=== PATIENT | male | born 1960 | race Caucasian/White ===

== ENCOUNTER → 2018-10-26 10:27 | Outpatient (CLI) | payer OTHER, MEDICARE ==
--- NOTE | ~2018-10-26 | HEMODYNAMI ---
PATIENT:JOSE CARDOZO MEDICAL RECORD: [id number] : 56 LOCATION:D.CAT ADMISSION DATE: 10/26/18 Generatedon:10/26/201814:09 Patient name: JOSE CARDOZO Patient #: [id number] SSN: : 1960 Date of study: 10/26/2018 Page: Of Hemodynamic Procedure Report Patient Data Patient Demographics Procedure consent was obtained First Name: JOSE Gender: Male Last Name: CAS : 1960 Middle Initial: A Age: 57 year(s) Patient #: [id number] Race: Unknown Additional ID: [id number] Contact details Address: [address] [place] [address] State: [place] City: [place] Zip code: [address] Past Medical History Allergies Allergen Reaction Date Comments Reported Other allergy 10/26/2018 CARBOCAINE Admission Admission Data Admission Date: 10/26/2018 Admission Time: 10:27 Height (in.): 68 BSA: 1.96 (m2) Height (cm.): 172.72 BMI: 27.42 (kg/m2) Weight (lbs.): 180.36 Weight (kg.): 81.81 Lab Results Lab Result Date: 10/26/2018 Lab Result Time: 0:00 Biochemistry Name Units Result Min Max BUN mg/dl 11 --(-*--)-- 7 18 Creatinine mg/dl 0.9 --(-*--)-- 0.6 1.3 CBC Name Units Result Min Max Hematocrit % 41.9 -*(----)-- 42 54 Hemoglobin g/dl 14.3 --(*---)-- 13.5 17.5 Procedure Procedure Types Cath Procedure Diagnostic Procedure [facility] w/Coronaries Sedation Charges Moderate Sedation up to 15 minutes Procedure Description Procedure Date Procedure Date: 10/26/2018 Procedure Start Time: 13:46 Procedure End Time: 14:06 Procedure Staff Name Function Bety Cornejo RN Nurse Krunal Kaur MD Performing Physician Lakshmi Canales RT Scrub Lizette Ovalle RT Monitor Procedure Data Cath Procedure Fluoroscopy Diagnostic fluoroscopy Total fluoroscopy Time: 2 time: 2 min min Diagnostic fluoroscopy Total fluoroscopy dose: 253 dose: 253 mGy mGy Contrast Material Contrast Material Type Amount (ml) Isovue 300 44 Entry Location Entry Primary Successful Side Size Upsize Upsize Entry Closure [place]den ccessful Closure Location (Fr) 1 (Fr) 2 (Fr) Remarks Device Remarks Radial Right 6 Fr Mechanical TR band artery Short Compression Estimated blood loss: 10 ml Diagnostic catheters Device Type Used For End Catheter Placement DIAGNOSTIC Gaston 110cm Procedure 5Fr catheter ([id number]) Procedure Complications No complications Procedure Medications Medication Administration Route Dosage Oxygen etCO2 Nasal cannula 2 l/min Lidocaine 2% added to field 20 Heparin Flush Bag added to field 2 bags (1000units/500ml NS) 0.9% NaCl I.V. 100 ml/hr Radial Cocktail I.A. 1 syringe (Verapomil 2mg/Nitro 400mcg/Heparin 1500units) Versed I.V. 2 mg Fentanyl I.V. 100 mcg Versed I.V. 2 mg Fentanyl I.V. 50 mcg Versed I.V. 2 mg Hemodynamics Rest BSA: 1.96 (m2) HGB: 14.3 (g/dl) O2 Consumption: Estimated: 232.67 (ml/min) O2 Co nsumption indexed: Estimated:118.71 (ml/min/m) Heart Rate: 73 (bpm) Pressure Samples Time Site Value (mmHg) Purpose Heart Use Rate(bpm) 13:50 LV 82/16,17 Snapshot 63 13:50 LV 123/30,13 Snapshot 123 13:51 AO 108/72(89) Pullback 60 13:51 LV 116/13,11 Pullback 60 Gradients Valve Time Site 1 Site 2 Mean SEP/DFP Peak To Heart Use (mmHg) (sec/min) Peak Rate (mmHg) (bpm) Aortic 13:51 LV AO 4 11 8 60 116/13,11 108/72(89) Calculations Valve P-P Mean Valve Index Valve Source Name Gradient Area Flow (cm2) Aortic 8 4 8 4 Snapshots Pre Cath Intra NCS Post Cath Vital Signs Time Heart Resp SPO2 etCO2 NIBP (mmHg) Rhythm Pain Sedation Rate (ipm) (%) (mmHg) Status Level (bpm) 13:39:29 68 19 98 0 149/103(141) NSR 0 (11) 10(A) , No pain 13:43:51 58 14 98 25.5 127/74(101) NSR 0 (11) 10(A) , No pain 13:48:01 70 13 98 0 126/87(104) NSR 0 (11) 9(A) , No pain 13:52:13 65 14 96 12 110/77(88) NSR 0 (11) 9(A) , No pain 13:56:23 72 14 97 0 112/67(87) NSR 0 (11) 9(A) , No pain 14:00:27 71 13 96 31.5 112/85(103) NSR 0 (11) 10(A) , No pain 14:04:30 73 13 100 40.5 120/85(98) NSR 0 (11) 10(A) , No pain Medications Time Medication Route Dose Verified Delivered Reason Notes Effectiveness by by 13:37:15 Oxygen etCO2 2 l/min Krunal Buffie used for Nasal Vincent Cornejo RN procedure cannula 13:37:21 Lidocaine 2% added 20ml Krunal Krunal for local to vial Vincent Kaur MD anesthetic field 13:37:27 Heparin Flush added 2 bags Krunal Krunal used for Bag to Vincent Kaur MD procedure (1000units/500ml field NS) 13:37:39 0.9% NaCl I.V. 100 Krunal Buffie used for ml/hr Vincent Cornejo RN procedure 13:44:32 Versed I.V. 2 mg Krunal Buffie for sedation Vincent Cornejo RN 13:44:39 Fentanyl I.V. 100 mcg Krunal Buffie for sedation Vincent Cornejo RN 13:49:12 Radial Cocktail I.A. 1 Krunal Krunal for (Verapomil syringe Vincent Kaur MD vasodilation 2mg/Nitro 400mcg/Heparin 1500units) 13:51:25 Versed I.V. 2 mg Krunal Buffie for sedation Vincent Cornejo RN 13:51:31 Fentanyl I.V. 50 mcg Krunal Buffie for sedation Vincent Cornejo RN 14:01:00 Versed I.V. 2 mg Krunal Krunal for sedation Vincent Kaur MD Procedure Log Time Note 12:58:43 Signed procedure consent form obtained from patient. 12:58:44 Diagnostic Cath status Elective 12:58:45 Time tracking: Regular hours (M-F 7:00 - 5:00) 12:58:48 Plan of Care:Hemodynamics will remain stable., Cardiac rhythm will remain stable., Comfort level will be maintained., Respiratory function will remain adequate., Patient/ family verbilizes understanding of procedure., Procedure tolerated without complication., Recovers from procedure without complications.. 12:59:05 Patient allergic to Other allergyCARBOCAINE 12:59:51 Lab Result : Hemoglobin 14.3 g/dl 12:59:51 Lab Result : Hematocrit 41.9 % 12:59:51 Lab Result : BUN 11 mg/dl 12:59:51 Lab Result : Creatinine 0.9 mg/dl 13:00:01 Patient Weight : 180.36 lbs 13:00:14 Patient Height : 68 inches 13:10:19 H&P Date Dictated: 10/19/2018 Within 30 days and on chart., H&P Addendum completed by physician on day of procedure. (MUST COMPLETE FOR ALL OUTPATIENTS). 13:19:16 Beyt Cornejo RN sent for patient. Start room use. 13:37:15 Oxygen 2 l/min etCO2 Nasal cannula was administered by Bety Cornejo RN; used for procedure; 13:37:21 Lidocaine 2% 20ml vial added to field was administered by Krunal Kaur MD; for local anesthetic; 13:37:27 Heparin Flush Bag (1000units/500ml NS) 2 bags added to field was administered by Krunal Kaur MD; used for procedure; 13:37:39 0.9% NaCl 100 ml/hr I.V. was administered by Bety Cornejo RN; used for procedure; 13:38:16 Vital chart was started 13:38:18 ECG and BP/O2 sat monitors applied to patient. 13:38:19 Baseline sample Acquired. 13:38:22 Rhythm: sinus rhythm 13:38:24 Full Disclosure recording started 13:38:28 Family in patients room. 13:38:30 Patient NPO since Midnight. 13:38:38 Is the patient allergic to Iodine/contrast media? No. 13:38:39 Was the patient premedicated? Yes 13:38:42 Is patient on blood thinner?No 13:38:44 Patient diabetic? No. 13:38:55 Snore? No 13:38:56 Sleep apnea? No 13:38:57 Deviated septum? No 13:39:03 Dentures? No ? 13:39:08 Patient pain scale 0/10 ?. 13:39:19 IV patent on arrival in left forearm with 0.9% NaCl at [facility]. 13:39:25 Lab results completed and on chart. 13:39:29 Right Radial & Right Groin area was prepped with chlora-prep and draped in sterile fashion 13:39:30 Alarms reviewed by R. N. 13:39:30 Sharps counted by scrub and verified by R.N. 13:39:32 Physician paged 13:44:01 Physician arrived 13:44:02 --------ALL STOP TIME OUT------ 13:44:02 Final Timeout: patient, procedure, and site verified with staff and physician. All members of the team are in agreement. 13:44:05 Right Radial & Right Groin site verified by team. 13:44:11 Maximum allowable Isovue 300 dose 300ml. Physician notified. (300ml for normal creatinines. For patients with creatinine of 1.7 or higher multiply weight(kg) x 5 divided by creatinine.) 13:44:17 Fire Safety Assessment: A--An alcohol-based skin anteseptic being used preoperatively., C--Open oxygen or nitrous oxide is being used., D--An ESU, laser, or fiber-optic light is being used. 13:44:27 Physical assessment completed. ASA score P 2 - A patient with mild systemic disease as per Krunal Kaur MD. 13:44:32 Versed 2 mg I.V. was administered by Bety Cornejo RN; for sedation; 13:44:33 Sedation plan: IV Moderate Sedation Medication:Versed, Fentanyl 13:44:39 Fentanyl 100 mcg I.V. was administered by Bety Cornejo RN; for sedation; 13:46:26 Use device set Radial Dx or PCI 13:46:28 ACIST Syringe (69628) opened to sterile field. 13:46:28 Medline Cath Pack ([id number]) opened to sterile field. 13:46:29 Bag Decanter (2002) opened to sterile field. 13:46:30 DIAGNOSTIC WIRE .035 260cm J wire (191073) opened to sterile field. 13:46:31 ACIST Hand Control (77070) opened to sterile field. 13:46:31 ACIST Manifold (65456) opened to sterile field. 13:46:31 Tegaderm 4 x 4 (1626W) opened to sterile field. 13:46:32 MBrace Wrist Support ([id number]) opened to sterile field. 13:46:33 NEEDLE Cook 21G 4cm Radial (U08867) opened to sterile field. 13:46:35 SHEATH 6FR Slender (801063) opened to sterile field. 13:46:41 Procedure started. 13:46:52 Local anesthetic to right radial artery with Lidocaine 2% by Bety Cornejo RN.INITIAL ACCESS ONLY 13:47:02 A 6 Fr Short sheath was inserted into the Right Radial artery 13:48:44 A DIAGNOSTIC Gaston 110cm 5Fr catheter (385816) was advanced over the wire and used for Procedure. 13:49:12 Radial Cocktail (Verapomil 2mg/Nitro 400mcg/Heparin 1500units) 1 syringe I.A. was administered by Krunal Kaur MD; for vasodilation; 13:49:12 LV angiography performed. 13:49:20 LV gram done using MATUTE 13:50:50 EF : 60 % 13:51:25 Versed 2 mg I.V. was administered by Bety Cornejo RN; for sedation; 13:51:31 Fentanyl 50 mcg I.V. was administered by Bety Cornejo RN; for sedation; 13:51:36 LCA angiography performed. 13:53:34 RCA angiography performed. 13:56:18 Catheter removed. 14:01:00 Versed 2 mg I.V. was administered by Krunal Kaur MD; for sedation; 14:04:17 Sheath removed intact; hemostasis achieved with Mechanical Compression to the Right Radial artery. 14:04:20 Procedure ended.(Physican Out) 14:04:42 Fluoroscopy time 02.00 minutes. 14:04:49 Fluoroscopy dose: 253 mGy 14:04:49 Flurop Dose total: 253 14:04:54 Contrast amount:Isovue 300 44ml. 14:04:59 Sharps counted by scrub and verified by R.N. 14:05:05 TR band inflated with 12cc of air. 14:05:07 Insertion/operative site no bleeding no hematoma. 14:05:26 Post right radial artery:stable 14:05:30 Post Procedure Pulses reassessed and unchanged 14:05:34 Post-procedure physical assessment completed. ASA score P 2 - A patient with mild systemic disease as per Bety Cornejo RN. 14:05:39 Post procedure rhythm: sinus rhythm 14:05:44 Estimated blood loss: 10 ml 14:05:46 Post procedure instruction explained to patient.Patient verbalizes understanding. 14:06:01 Procedure type changed to Cath procedure, Diagnostic procedure, LHC, LHC w/Coronaries, Sedation Charges, Moderate Sedation up to 15 minutes 14:06:03 Procedure and supply charges have been captured, reviewed, submitted and are correct. 14:06:21 Procedure Complication : No complications 14:06:24 Vital chart was stopped 14:06:25 See physician's report for complete and final results. 14:06:27 Report given to Pre/Post Procedure Room. 14:06:31 Patient transfered to Pre/Post Procedure Room with Stretcher. 14:06:33 Procedure ended. 14:06:33 Full Disclosure recording stopped 14:06:43 End room use (Document Last) Device Usage Item Name Manufacture Quantity Catalog Hospital Part Current Minimal Lot# / Number Charge Number Stock Stock Serial# Code ACIST Acist 1 31003 305267 895423 [id number] 20 Syringe Medical (26741) Systems Inc Medline Medline 1 [id number] 085247 10902 652332 5 Cath Pack ([id number]) Bag Microtek 1 2001S 995524 47336 495175 5 Decanter Medical Inc. () DIAGNOSTIC St Baron 1 704835 548307 121516 366185 30 WIRE .035 260cm J wire (577190) ACIST Hand Acist 1 55961 129230 541690 895858 5 Control Medical (62082) Systems Inc ACIST Acist 1 59555 428305 201386 995942 5 Manifold Medical (16940) Systems Inc Tegaderm 4 3M 1 1626W 774508 881430 425973 5 x 4 (1626W) MBrace Advanced 1 140-0250-00 004167 91232 444426 5 Wrist Vascular Support Dynamics ([id number]) NEEDLE Eleven [employer] Medical 1 U02820 091305 067515 377769 5 21G 4cm Radial (R79173) SHEATH 6FR Terumo 1 [id number] 876347 855220 490569 5 Slender (96-9571) DIAGNOSTIC Terumo 1 57-5752 296442 608092 676406 5 Gaston 110cm 5Fr catheter (223858) Signature Audit [place] Stage Time Signature Unsigned Intra-Procedure 10/26/2018 Lizette Ovalle 2:09:48 PM RT(R) Signatures Monitor : Lizette Ovalle Signature : RT Date : Time : [place] [id number] [facility] [address]
[~2018-10-26 10:27] MED LIST: ASPIRIN81 MG PO; ATIVAN0.5 MG PO; ISOSORBIDE MONO10 MG PO; LOVASTATIN40 MG PO; METOPROLOL TART50 MG PO; NITROSTAT0.4 MG SL
[2018-10-26 11:01] VITALS: BP 156/99; BMI 27.4
[2018-10-26 11:12] LABS: BASOPHILS 0.3 % (0-2); EOSINOPHILS 9.7 % (0-7); HEMATOCRIT 41.9 % (42.0-54.0); HEMOGLOBIN 14.3 g/dL (13.5-17.5); IMMATURE GRANULOCYTES 0.6 % (0-5); LYMPHOCYTES 16.2 % (15-50); MCH 31.8 pg (26.0-34.0); MCHC 34.1 g/dL (31.0-37.0); MCV 93.3 fL (80.0-100.0); MEAN PLATELET VOLUME 11.5 fL (7.4-10.4); MONOCYTES 8.2 % (2-11); PLATELET COUNT 246 10x3/uL (130-400); RBC 4.49 10x6/uL (4.20-6.10); RDW 13.4 % (11.5-14.5); WBC 10.9 10x3/uL (4.8-10.8)
[2018-10-26 11:18] LABS: CALC OSMOLALITY 281 mosm/kg (275-300); CARBON DIOXIDE 27.8 mmol/L (21.0-32.0); CHLORIDE - SERUM 107 mmol/L (98-107); CREATININE - SERUM 0.9 mg/dL (0.6-1.3); GLUCOSE 92 mg/dL (74-106); POTASSIUM - SERUM 4.4 mmol/L (3.5-5.1); SODIUM 142 mmol/L (136-145); UREA NITROGEN 11 mg/dL (7-18); eGFR NON AFRICAN AMERICAN > 90 mL/min (90-120)
== END | disposition home or self-care (01) ==
LOC: D.CATH 10:27
PROVIDERS: Internal Medicine Cardiovascular Disease
DX: I25.119 Atherosclerotic heart disease of native coronary artery with unspecified angina pectoris (principal); Z95.5 Presence of coronary angioplasty implant and graft; Z01.812 Encounter for preprocedural laboratory examination

== ENCOUNTER 2018-10-28 05:07 | Inpatient (IN) | payer OTHER, MEDICARE ==
[2018-10-26 16:16] LABS: APTT 36.1 SECONDS (22.8-39.4); INR 1.1 (0.85-1.17); PROTIME 13.7 SECONDS (11.6-15.0)
[2018-10-26 16:44] LABS: PHOSPHOROUS 3.5 mg/dL (2.5-4.9); T4 THYROXIN - FREE 0.95 ng/dL (0.76-1.46); THYROID STIMULATING HORMONE 2.05 uIU/mL (0.36-3.74); URIC ACID 6.3 mg/dL (2.6-7.2)
[~2018-10-28] VITALS: Ht 172.7 cm; Wt 87.5 kg
[2018-10-28] VITALS (27 sets, daily range): BP systolic 96–171; BP diastolic 52–98; BMI 27.1; BMI 31.8
[2018-10-28 06:30] LABS: APPEARANCE CLEAR (CLEAR); COLOR YELLOW (YELLOW)
[2018-10-28 06:31] LABS: BILIRUBIN NEGATIVE (NEGATIVE); GLUCOSE NEGATIVE (NEGATIVE); KETONE NEGATIVE (NEGATIVE); NITRITE NEGATIVE (NEGATIVE); PROTEIN NEGATIVE (NEGATIVE); UROBILINOGEN NORMAL (NORMAL)
--- NOTE | 2018-10-28 14:39 | TEE ---
PATIENT:JOSE CARDOZO MEDICAL RECORD: [id number] LOCATION:[place] [address] AGE OF PATIENT: 57 ADMISSION DATE: 10/28/18 SEX: M REFERRING PHYSICIAN: INTERPRETING PHYSICIAN: RAMANDEEP GRECO MD TRANSESOPHAGEAL ECHOCARDIOGRAM Date: 10/28/18 LESIA CHARGE Y INDICATIONS: CABG PREMEDICATIONS: PATIENT'S RESPONSE PROCEDURE DOPPLER MEASUREMENTS: LVIT LA PA RA LVOT RVOT Asc. Ao AV Gradient Peak AV Mean AV Area MV Gradient Peak MV Mean MV Area INTERPRETATION: Doppler: 2-D: COLOR FLOW DOPPLER NORMAL SALINE STUDY: MISCELLANOUS: DIAGNOSIS: PLAN: Hand Stoner:2 Dr. Kaur Marine Engine Mechanic: Aquilino GARG COMMENTS: BENITA ORDOÑEZ DATE OF SERVICE: 10/28/2018 DATE OF SERVICE: 10/28/2018 PROCEDURE: Transesophageal echo evaluation of valvular structures during bypass surgery. FINDINGS: 1. Left ventricular chamber size is within normal limits. Left ventricular TRANSESOPHAGEAL ECHOCARDIOGRAM REPORT [id number] JOSE CARDOZO systolic function is normal. Overall ejection fraction estimated at 55%. 2. Left atrium, right atrium, and right ventricle chamber sizes are within normal limits. 3. Valvular structures have normal structure and motion. 4. Doppler interrogation reveals no significant valvular insufficiency or stenosis. 5. No evidence of pericardial effusion or left ventricular thrombus. TRANSINT:[id number] Voice Confirmation ID: [id number] DOCUMENT ID: [id number] at 1439 CC: [id number] DICTATION DATE: 10/28/18 1114 CLINICAL PHYSICIAN ASSISTANT: 10/28/18 1320 ADM IN [place] [id number] [place] [address]
[2018-10-29] VITALS (17 sets, daily range): BP systolic 99–135; BP diastolic 6–98
[2018-10-29 05:14] LABS: HEMATOCRIT 33.6 % (42.0-54.0); HEMOGLOBIN 11.4 g/dL (13.5-17.5); MCH 31.3 pg (26.0-34.0); MCHC 33.9 g/dL (31.0-37.0); MCV 92.3 fL (80.0-100.0); MEAN PLATELET VOLUME 11.2 fL (7.4-10.4); RBC 3.64 10x6/uL (4.20-6.10); RDW 13.7 % (11.5-14.5); WBC 21.7 10x3/uL (4.8-10.8)
[2018-10-29 05:30] LABS: ALBUMIN 2.4 g/dL (3.4-5.0); ANION GAP 11.9 mmol/L (8-16); BILIRUBIN - TOTAL 0.71 mg/dL (0.2-1.3); CALCIUM 7.1 mg/dL (8.5-10.1); CARBON DIOXIDE 25.3 mmol/L (21.0-32.0); CREATININE - SERUM 1.2 mg/dL (0.6-1.3); POTASSIUM - SERUM 4.2 mmol/L (3.5-5.1); PROTEIN - SERUM 5.1 g/dL (6.4-8.2)
--- NOTE | 2018-10-29 14:18 | OP ---
PATIENT NAME: JOSE CARDOZO MEDICAL RECORD: [id number] :56 LOCATION:.[facility] D.CV03 ADMISSION DATE:10/28/18 SURGEON: DEMETRI JOY MD DATE OF OPERATION: 10/28/2018 SURGEON: Demetri Joy MD SLITTER SERVICE AND SETTER: Stanley Coffman. PROCEDURE PERFORMED: Coronary artery bypass graft times 3 (left internal mammary artery to LAD, right internal mammary artery to right coronary artery, reverse saphenous vein graft from aorta to obtuse marginal distal branch). PREOPERATIVE DIAGNOSES: Coronary artery disease with unstable angina. POSTOPERATIVE DIAGNOSES: Coronary artery disease with unstable angina. ANESTHESIA: General endotracheal anesthesia. ESTIMATED BLOOD LOSS: Total cardiopulmonary bypass with Cell Saver retransfusion. COMPLICATIONS: None. SPECIMENS: None. CONDITION: Stable. DISPOSITION: CV ICU. OPERATIVE FINDINGS: 1. Transesophageal echocardiography was normal. 2. Good quality left internal mammary artery taken down as a skeletonized graft and the LAD was a 2.0-mm vessel. 3. Good quality right internal mammary artery, moderate disease in the right coronary artery at the bifurcation, but a 1.5 mm probe passed into the ongoing right as well as the PDA. There was good Doppler signal after anastomosis and after reversal of heparin. 4. Three bridging incisions left lower leg to remove a 3 mm caliber piece of vein, which was a good match for the distal branch of the bifurcating obtuse marginal beyond the stent and there was moderate palpable plaque in the proximal end of this branch vessel. OPERATIVE INDICATION: Coronary artery disease and unstable angina. OPERATIVE SUMMARY IN DETAIL: The patient was brought to the operative suite. General anesthesia was obtained, the patient was prepped and draped. Greater saphenous vein was harvested from the patient's left lower extremity utilizing bridging incisions. Side branches were clipped. Vessel ligated proximally and distally removed. Later, leg was closed in 2 layers and wrapped. Median sternotomy incision was made. Subcutaneous tissue was divided with electrocautery. Sternum was divided with a saw. Left hemisternum was elevated. Left pleural cavity was entered. Left internal mammary and vein was taken as a pedicle graft. Right pleural cavity was entered. Right internal mammary artery OPERATIVE REPORT [id number] JOSE CARDOZO was taken down as a pedicle graft. Heparin was given. The vessel was clipped distally and made ready for anastomosis. Pericardium was opened. Heparin was given. Aorta was cannulated. Dual stage venous cannula was inserted. The patient was placed on cardiopulmonary bypass. Sites for distal anastomosis were selected. left internal mammary made ready for anastomosis. The patient's temperature allowed to drift. Antegrade cardioplegia cannula and needle was inserted. Crossclamp was placed. Cardioplegia given antegrade. This was repeated at 3-minute intervals including down the completed vein graft. Distal anastomosis was performed in standard technique. A pedicle graft JESSICA, pedicle graft DURAN, single proximal anastomosis and crossclamped. Root de-aired. Flow restored. Proximal and distal anastomotic sites inspected for bleeding, weaned from cardiopulmonary bypass after full rewarming. The patient was decannulated. The cannula sites were oversewn. Protamine was given. Thorough irrigation was undertaken. A drain was placed in both pleural cavities and mediastinum. Atrial and ventricular pacing wires were placed. The pericardial fat was loosely reapproximated in the midline. Both internal mammary harvest sites were inspected for bleeding. Both chests were evacuated. Sternum was closed with wires. Fascia was closed. Subcutaneous tissue was closed. The skin was closed. Dermabond was placed. The needle and sponge counts were reported as correct. The patient was taken to ICU in stable condition. TRANSINT:[id number] Voice Confirmation ID: [id number] DOCUMENT ID: [id number] DEMETRI JOY MD at 1418 CC: SHERRI MILLAN M.D. and JERMAN MARINO MD [id number] DICTATION DATE: 10/28/18 162 BODY WORK AUTO TRIMMER: 10/28/18 2201 ADM IN [facility] [address] [place] [id number]
[2018-10-30] VITALS (23 sets, daily range): BP systolic 89–132; BP diastolic 44–82
[2018-10-30 06:35] LABS: HEMATOCRIT 33.8 % (42.0-54.0); HEMOGLOBIN 11.3 g/dL (13.5-17.5); MCH 31.5 pg (26.0-34.0); MCHC 33.4 g/dL (31.0-37.0); MCV 94.2 fL (80.0-100.0); MEAN PLATELET VOLUME 11.9 fL (7.4-10.4); RBC 3.59 10x6/uL (4.20-6.10); RDW 13.6 % (11.5-14.5); WBC 32.6 10x3/uL (4.8-10.8)
[2018-10-30 06:50] LABS: ALBUMIN 2.5 g/dL (3.4-5.0); ANION GAP 11.5 mmol/L (8-16); BILIRUBIN - TOTAL 0.59 mg/dL (0.2-1.3); CALCIUM 8.3 mg/dL (8.5-10.1); CARBON DIOXIDE 27.9 mmol/L (21.0-32.0); CREATININE - SERUM 1.4 mg/dL (0.6-1.3); POTASSIUM - SERUM 4.4 mmol/L (3.5-5.1)
[2018-10-31] VITALS (55 sets, daily range): BP systolic 78–120; BP diastolic 46–80
[2018-10-31 04:10] LABS: HEMATOCRIT 29.9 % (42.0-54.0); MCH 31.3 pg (26.0-34.0); MCHC 33.4 g/dL (31.0-37.0); MCV 93.4 fL (80.0-100.0); MEAN PLATELET VOLUME 11.4 fL (7.4-10.4); RBC 3.2 10x6/uL (4.20-6.10); RDW 13.2 % (11.5-14.5); WBC 20.9 10x3/uL (4.8-10.8)
[2018-10-31 04:22] LABS: ALBUMIN 2.1 g/dL (3.4-5.0); ANION GAP 10.5 mmol/L (8-16); BILIRUBIN - TOTAL 0.52 mg/dL (0.2-1.3); CALCIUM 7.9 mg/dL (8.5-10.1); CARBON DIOXIDE 28.9 mmol/L (21.0-32.0); CREATININE - SERUM 1.3 mg/dL (0.6-1.3); POTASSIUM - SERUM 4.4 mmol/L (3.5-5.1); PROTEIN - SERUM 5.8 g/dL (6.4-8.2)
[2018-11-01] VITALS (22 sets, daily range): BP systolic 91–130; BP diastolic 57–78
[2018-11-01 05:00] LABS: HEMATOCRIT 26.3 % (42.0-54.0); HEMOGLOBIN 8.9 g/dL (13.5-17.5); MCH 31.4 pg (26.0-34.0); MCHC 33.8 g/dL (31.0-37.0); MCV 92.9 fL (80.0-100.0); RBC 2.83 10x6/uL (4.20-6.10); RDW 13.3 % (11.5-14.5)
[2018-11-01 05:08] LABS: WBC 15.2 10x3/uL (4.8-10.8)
[2018-11-01 05:20] LABS: ALBUMIN 1.9 g/dL (3.4-5.0); ANION GAP 8.6 mmol/L (8-16); BILIRUBIN - TOTAL 0.46 mg/dL (0.2-1.3); CALCIUM 8.1 mg/dL (8.5-10.1); CARBON DIOXIDE 29.2 mmol/L (21.0-32.0); CREATININE - SERUM 1.1 mg/dL (0.6-1.3); POTASSIUM - SERUM 3.8 mmol/L (3.5-5.1); PROTEIN - SERUM 5.7 g/dL (6.4-8.2)
[2018-11-02] VITALS (24 sets, daily range): BP systolic 105–143; BP diastolic 65–86; Ht 172.7 cm; Wt 87.5 kg
[2018-11-02 05:39] LABS: HEMOGLOBIN 8.9 g/dL (13.5-17.5); MCH 32.1 pg (26.0-34.0); MCHC 34.2 g/dL (31.0-37.0); MCV 93.9 fL (80.0-100.0); MEAN PLATELET VOLUME 9.5 fL (7.4-10.4); RBC 2.77 10x6/uL (4.20-6.10); WBC 10.8 10x3/uL (4.8-10.8)
[2018-11-02 05:57] LABS: ALKALINE PHOSPHATASE 69 U/L (46-116); ALT (SGPT) 29 U/L (10-68); BILIRUBIN - TOTAL 0.57 mg/dL (0.2-1.3); CALC OSMOLALITY 278 mosm/kg (275-300); CALCIUM 8.5 mg/dL (8.5-10.1); CARBON DIOXIDE 28.5 mmol/L (21.0-32.0); CHLORIDE - SERUM 104 mmol/L (98-107); GLUCOSE 103 mg/dL (74-106); POTASSIUM - SERUM 3.9 mmol/L (3.5-5.1); PROTEIN - SERUM 5.9 g/dL (6.4-8.2); SODIUM 139 mmol/L (136-145); UREA NITROGEN 16 mg/dL (7-18); eGFR NON AFRICAN AMERICAN 81 mL/min (90-120)
[2018-11-03] VITALS (13 sets, daily range): BP systolic 122–147; BP diastolic 71–93
[2018-11-03] MEDS ORDERED: PERCOCET 5-3251 TAB PO (11:01)
[2018-11-03] MEDS ORDERED: PLAVIX75 MG PO (11:02)
[2018-11-03] MEDS ORDERED: AMIODARONE HCL200 MG PO (11:03)
[2018-11-03] MEDS ORDERED: LOPRESSOR25 MG PO (11:03)
[2018-11-03] MEDS ORDERED: COLACE100 MG PO (11:04)
--- NOTE | 2018-11-03 17:40 | MORECARE ---
CASE MANAGEMENT DISCHARGE SUMMARY PATIENT: JOSE CARDOZO UNIT: [id number] ADM DATE: 10/28/18 AGE: 57 : 56 SEX: M ROOM/BED: [facility] AUTHOR: EARLENE FRAUSTO PHYSICIAN: REFERRING PHYSICIAN: ROBIN JOY MD DATE OF SERVICE: 11/03/18 Discharge Plan Patient Name: JOSE CARDOZO [facility] [facility] 1960 Planned Disposition: Home Anticipated Discharge Date: Discharge Date: 11/03/2018 Expected LOS: Initial Reviewer: [email or web address] Initial Review Date: 11/03/2018 Generated: 11/03/18 6:40 pm Patient Name: JOSE CARDOZO Page 53440 at 1740 All edits/amendments must be made on the electronic document DICTATION DATE: 11/03/181738 SANDER AND BUFFER: SANCHEZ 11/03/181738 RPT#: [id number] DC DATE:11/03/18 STATUS: DIS IN [facility] [address] [place] [address] END OF REPORT
--- NOTE | 2018-11-03 17:47 | MORECARE ---
CASE MANAGEMENT DISCHARGE SUMMARY PATIENT: JOSE CARDOZO UNIT: [id number] ADM DATE: 10/28/18 AGE: 57 : 56 SEX: M [facility] AUTHOR: EARLENE FRAUSTO PHYSICIAN: REFERRING PHYSICIAN: ROBIN JOY MD DATE OF SERVICE: 11/03/18 Discharge Plan Patient Name: JOSE CARDOZO [facility] [facility] 1960 Planned Disposition: Home Anticipated Discharge Date: Discharge Date: 11/03/2018 Expected LOS: Initial Reviewer: [email or web address] Initial Review Date: 11/03/2018 Generated: 11/03/18 6:47 pm DCPIA - Discharge Planning Initial Assessment Updated by [email or web address]: Makenna Reddy on 11/03/18 5:44 pm * Is the patient Alert and Oriented? Yes * How many steps to enter\exit or inside your home? * PCP NED SU * Pharmacy [facility] * Preadmission Environment Home with Family * ADLs Independent * Other Equipment WHEELCHAIR, B/P CUFF * List name and contact numbers for known caregivers / representatives who currently or will assist patient after discharge: CHLOE CARDOZO - SPOUSE- [phone] * Verbal permission to speak to the caregivers and representatives has been obtained from the patient. Yes * Community resources currently utilized None * Additional services required to return to the preadmission environment? No * Can the patient safely return to the preadmission environment? Yes * Has this patient been hospitalized within the prior 30 days at any hospital? No Last DP export: 11/03/18 4:40 p Patient Name: JOSE CARDOZO Page 24401 at 1747 All edits/amendments must be made on the electronic document DICTATION DATE: 11/03/181746 BAND RIPSAW OPERATOR: SANCHEZ 11/03/181746 RPT#: [id number] DC DATE:11/03/18 STATUS: DIS IN [facility] [address] [place] [address] END OF REPORT
--- NOTE | 2018-11-03 17:56 | MORECARE ---
CASE MANAGEMENT DISCHARGE SUMMARY PATIENT: JOSE CARDOZO UNIT: [id number] ADM DATE: 10/28/18 AGE: 57 : 56 SEX: M ROOM/BED: D.03 AUTHOR: JETT,DOC PHYSICIAN: REFERRING PHYSICIAN: ROBIN JOY MD DATE OF SERVICE: 11/03/18 Discharge Plan Patient Name: JOSE CARDOZO Facility: [facility]:[place] : 1960 Planned Disposition: Home Anticipated Discharge Date: Discharge Date: 11/03/2018 Expected LOS: Initial Reviewer: [email or web address] Initial Review Date: 11/03/2018 Generated: 11/03/18 6:56 pm Comments DCP- Discharge Planning Updated by [email or web address]: Makenna Reddy on 11/03/18 4:[address] LATE ENTRY 11/03/18 @ 1200 Patient Name: JOSE CARDOZO Admission Status: Urgent Accout number: [id number] Admission Date: 10-28-2018 : 1960 Admission Diagnosis:ATHSCL HEART DISEASE OF [place] ART W UNSTABLE ANG P Attending: ROBIN JOY Current LOS: 6 Anticipated DC Date: Planned Disposition: Home Primary Insurance: [facility] Discharge Planning Comments: CM spoke with patient at bedside. Patient states he lives at home with his (Alejandrina). He plans to return to their home upon discharge. Patient denies any discharge needs at this time. CM will continue to follow and assist as needed with discharge planning / needs. Truck Hopper: Makenna Reddy DCPIA - Discharge Planning Initial Assessment Updated by [email or web address]: Makenna Reddy on 11/03/18 5:44 pm * Is the patient Alert and Oriented? Yes * How many steps to enter\exit or inside your home? * PCP NED SU * Pharmacy [facility] * Preadmission Environment Home with Family * ADLs Independent * Other Equipment WHEELCHAIR, B/P CUFF * List name and contact numbers for known caregivers / representatives who currently or will assist patient after discharge: ALEJANDRINA CARDOZO - SPOUSE- [phone] * Verbal permission to speak to the caregivers and representatives has been obtained from the patient. Yes * Community resources currently utilized None * Additional services required to return to the preadmission environment? No * Can the patient safely return to the preadmission environment? Yes * Has this patient been hospitalized within the prior 30 days at any hospital? No Last DP export: 11/03/18 4:47 p Patient Name: JOSE CARDOZO Page 90403 at 1756 All edits/amendments must be made on the electronic document DICTATION DATE: 11/03/181755 TREE FELLER: SANCHEZ 11/03/181755 RPT#: [id number] DC DATE:11/03/18 STATUS: DIS IN [facility] [address] [place] [address] END OF REPORT
--- NOTE | 2018-11-03 18:10 | MORECARE ---
CASE MANAGEMENT DISCHARGE SUMMARY PATIENT: JOSE CARDOZO UNIT: [id number] ADM DATE: 10/28/18 AGE: 57 : 56 SEX: M ROOM/BED: D.03 AUTHOR: JETT,DOC PHYSICIAN: REFERRING PHYSICIAN: ROBIN JOY MD DATE OF SERVICE: 11/03/18 Discharge Plan Patient Name: JOSE CARDOZO Facility: [facility]:[place] : 1960 Planned Disposition: Home Anticipated Discharge Date: Discharge Date: 11/03/2018 Expected LOS: Initial Reviewer: [email or web address] Initial Review Date: 11/03/2018 Generated: 11/03/18 7:10 pm Comments DCP- Discharge Planning Updated by [email or web address]: Makenna Reddy on 11/03/18 4:[address] LATE ENTRY 11/03/18 @ 1200 Patient Name: JOSE CARDOZO Admission Status: Urgent Accout number: [id number] Admission Date: 10-28-2018 : 1960 Admission Diagnosis:ATHSCL HEART DISEASE OF [place] COR ART W UNSTABLE ANG P Attending: ROBIN JOY Current LOS: 6 Anticipated DC Date: Planned Disposition: Home Primary Insurance: [facility] Discharge Planning Comments: CM spoke with patient at bedside. Patient states he lives at home with his (Alejandrina). He plans to return to their home upon discharge. Patient denies any discharge needs at this time. CM will continue to follow and assist as needed with discharge planning / needs. Inspector Tool: Makenna Reddy DCPIA - Discharge Planning Initial Assessment Updated by [email or web address]: Makenna Reddy on 11/03/18 5:44 pm * Is the patient Alert and Oriented? Yes * How many steps to enter\exit or inside your home? * PCP [facility] * Pharm[facility] * Preadmission Environment Home with Family * ADLs Independent * Other Equipment WHEELCHAIR, B/P CUFF * List name and contact numbers for known caregivers / representatives who currently or will assist patient after discharge: ALEJANDRINA CARDOZO - SPOUSE- [phone] * Verbal permission to speak to the caregivers and representatives has been obtained from the patient. Yes * Community resources currently utilized None * Additional services required to return to the preadmission environment? No * Can the patient safely return to the preadmission environment? Yes * Has this patient been hospitalized within the prior 30 days at any hospital? No Last DP export: 11/03/18 4:56 p Patient Name: JOSE CARDOZO Page [id number] at 1810 All edits/amendments must be made on the electronic document DICTATION DATE: 11/03/181808 DRILLING CONTRACTOR: SANCHEZ 11/03/181808 RPT#: [id number] DC DATE:11/03/18 STATUS: DIS IN [facility] [address] [place] [address] END OF REPORT
== END 2018-11-03 13:25 | disposition home or self-care (01) | DRG 236 ==
LOC: D.SDCHOLD 05:07 → D.CVICU 05:07 → D.SDCHOLD 07:30 → D.CVICU 10:18
PROVIDERS: ADMIT Thoracic Surgery (Cardiothoracic Vascular Surgery); ATTEND Thoracic Surgery (Cardiothoracic Vascular Surgery)
PROC: 02100Z8 Bypass Coronary Artery, One Artery from Right Internal Mammary, Open Approach (ICD-10-PCS; 2018-10-28)
PROC: 021009W Bypass Coronary Artery, One Artery from Aorta with Autologous Venous Tissue, Open Approach (ICD-10-PCS; 2018-10-28)
PROC: 06BQ0ZZ Excision of Left Saphenous Vein, Open Approach (ICD-10-PCS; 2018-10-28)
PROC: 5A1221Z Performance of Cardiac Output, Continuous (ICD-10-PCS; 2018-10-28)
PROC: B24BZZ4 Ultrasonography of Heart with Aorta, Transesophageal (ICD-10-PCS; 2018-10-28)
PROC: 02100Z9 Bypass Coronary Artery, One Artery from Left Internal Mammary, Open Approach (ICD-10-PCS; principal; 2018-10-28 07:30)
DX: I25.110 Atherosclerotic heart disease of native coronary artery with unstable angina pectoris (principal); I48.1 Persistent atrial fibrillation; I31.9 Disease of pericardium, unspecified; I10 Essential (primary) hypertension; E78.5 Hyperlipidemia, unspecified

== ENCOUNTER → 2018-11-25 10:19 | Outpatient (CLI) | payer OTHER, MEDICARE ==
[2018-11-02 11:05] VITALS: BMI 29.4
[~2018-11-25 10:19] MED LIST changes: +AMIODARONE HCL200 MG PO; +COLACE100 MG PO; +LOPRESSOR25 MG PO; +PERCOCET 5-3251 TAB PO; +PLAVIX75 MG PO
[2018-11-25 11:20] LABS: HEMATOCRIT 38.6 % (42.0-54.0); HEMOGLOBIN 12.6 g/dL (13.5-17.5); MCH 30.4 pg (26.0-34.0); MCHC 32.6 g/dL (31.0-37.0); MCV 93.2 fL (80.0-100.0); RBC 4.14 10x6/uL (4.20-6.10); RDW 12.9 % (11.5-14.5); WBC 10.8 10x3/uL (4.8-10.8)
[2018-11-25 11:34] LABS: ALBUMIN 3.4 g/dL (3.4-5.0); ALKALINE PHOSPHATASE 113 U/L (46-116); ALT (SGPT) 50 U/L (10-68); BILIRUBIN - TOTAL 0.32 mg/dL (0.2-1.3); CALC OSMOLALITY 273 mosm/kg (275-300); CALCIUM 9.5 mg/dL (8.5-10.1); CARBON DIOXIDE 28.9 mmol/L (21.0-32.0); CHLORIDE - SERUM 101 mmol/L (98-107); GLUCOSE 84 mg/dL (74-106); POTASSIUM - SERUM 4.5 mmol/L (3.5-5.1); PROTEIN - SERUM 7.9 g/dL (6.4-8.2); SODIUM 138 mmol/L (136-145); UREA NITROGEN 11 mg/dL (7-18); eGFR NON AFRICAN AMERICAN 81 mL/min (90-120)
== END | disposition home or self-care (01) ==
LOC: D.LAB 10:19
PROVIDERS: ATTEND Thoracic Surgery (Cardiothoracic Vascular Surgery)
DX: J90 Pleural effusion, not elsewhere classified (principal); D64.9 Anemia, unspecified